=== PATIENT | female | born 1965 | race Caucasian/White ===

== ENCOUNTER 2016-12-05 14:00 | Emergency (ER) | payer SELFPAY ==
[~2016-12-05] VITALS: Ht 161.3 cm; Wt 68.6 kg
[2016-12-05 14:14] VITALS: BP 109/68
--- NOTE | 2016-12-05 15:03 | NUR ---
Patient returned to ED lobby after XRAY completion.
--- NOTE | 2016-12-05 17:06 | NUR ---
Pt ambulated to bed 7.
--- NOTE | 2016-12-05 17:11 | NUR ---
51/F c/o left sided lower back pain for the past 3 days s/p slip and fall. Pt c/o 9/10 pain. Ambulatory with steady gait, use of cane. VSS.
--- NOTE | 2016-12-05 17:19 | NUR ---
Patient being evaluated by physician at bedside.
[2016-12-05] MEDS ORDERED: ONDANSETRON 4 MG/2 ML VIAL IM ONE (17:25)
[2016-12-05] MEDS ORDERED: HYDROmorphone 1 MG/ML AMP IM ONE (17:25)
[2016-12-05 18:07] VITALS: BP 103/67
--- NOTE | 2016-12-05 18:08 | NUR ---
Patient discharged with v/s stable. Written and verbal after care instructions given and explained. Patient alert, oriented and verbalized understanding of instructions. Ambulatory with steady gait. All questions addressed prior to discharge. ID band removed. Patient advised to follow up with PMD. Rx of TRAMADOL, FLEXERIL, AND TYLENOL NO 3 given. Patient educated on indication of medication including possible reaction and side effects. Opportunity to ask questions provided and answered.
== END 2016-12-05 18:08 | disposition home or self-care (01) ==
LOC: MED 14:00
DX: G89.29 Other chronic pain (principal); M54.5 Low back pain; M51.36 Other intervertebral disc degeneration, lumbar region; E11.9 Type 2 diabetes mellitus without complications; E78.5 Hyperlipidemia, unspecified; G25.81 Restless legs syndrome; Z88.0 Allergy status to penicillin; Z88.6 Allergy status to analgesic agent
CPT/HCPCS: 72100; 82948; 96372; 99284; J1170; J2405

== ENCOUNTER 2017-01-22 15:45 | Emergency (ER) | payer OTHER, MEDICAID ==
[~2017-01-22] VITALS: Ht 160 cm; Wt 69.5 kg
[2017-01-22 16:14] VITALS: BP 140/96
--- NOTE | 2017-01-22 16:26 | NUR ---
PATIENT PRESENTS TO ED WITH PRODUCTIVE COUGH/BODYACHES/SUBJECTIVE F/C/ FATIGUE/ X 3 DAYS . PT STATES . DENIES N/V/D; SKIN IS PINK/WARM/DRY; AAOX4 WITH EVEN AND STEADY GAIT; LUNGS CLEAR BL; HR EVEN AND REGULAR; PATIENT STATES PAIN OF 10/10 AT THIS TIME; VSS; PATIENT POSITIONED FOR COMFORT; ER MD MADE AWARE OF PT STATUS.
[2017-01-22 17:05] VITALS: BP 140/96
--- NOTE | 2017-01-22 17:05 | NUR ---
Patient discharged with v/s stable. Written and verbal after care instructions given and explained. Patient alert, oriented and verbalized understanding of instructions. Ambulatory with steady gait. All questions addressed prior to discharge. ID band removed. Patient advised to follow up with PMD. Rx of PROMETHAZINE AND PREDNISONE given. Patient educated on indication of medication including possible reaction and side effects. Opportunity to ask questions provided and answered.
== END 2017-01-22 17:05 | disposition home or self-care (01) ==
LOC: MED 15:45
DX: J45.909 Unspecified asthma, uncomplicated (principal); B34.9 Viral infection, unspecified; R03.0 Elevated blood-pressure reading, without diagnosis of hypertension; F17.210 Nicotine dependence, cigarettes, uncomplicated; Z88.0 Allergy status to penicillin; Z88.6 Allergy status to analgesic agent
CPT/HCPCS: 71020; 99284